=== PATIENT | female | born 1965 | race Two or more races ===

== ENCOUNTER 2024-09-07 09:37 | Emergency (ER) | payer MEDICAID, SELFPAY ==
[2024-09-07 09:43] VITALS: BP 118/76; PULSE 75; RESP 18; TEMP 36.7; O2SAT 98; BMI 31.1
--- NOTE | 2024-09-07 09:54 | PD.EDRME ---
Rapid Medical Screening Exam RME Arrival date/time: 09/07/24 09:37 59 yo f present to ED for c/o of RLQ/Flank pain for 1 month I have greeted and performed a focused initial assessment of this patient. A comprehensive ED assessment and evaluation of the patient, analysis of all test results, and completion of the medical decision making process will be conducted by additional ED providers. Chief Complaint: Abdominal Pain Vital signs: Vital Signs Temperature 98.0 F 09/07/24 09:43 Pulse Rate 75 09/07/24 09:43 Respiratory Rate 18 09/07/24 09:43 Blood Pressure 118/76 09/07/24 09:43 Pulse Oximetry (%) 98 09/07/24 09:43 Oxygen Delivery Method Room Air 09/07/24 09:43
--- NOTE | 2024-09-07 09:55 | XR_ITS ---
Examination: CT abdomen with intravenous contrast. CT pelvis with intravenous contrast. 2-D sagittal and coronal reconstructions. Date and time of exam: 09/07/2024 12:15 PM Indication: Abdominal pain, history of hernia surgery CTDI: vol (mGy) 11.2 DLP: (mGycm) 541 Technique: Axial sections of the abdomen and pelvis have been obtained post contrast intravenous injection 3 mm slice thickness. 2-D coronal and sagittal reconstructions were obtained. Low dose protocols were performed. One or more of the following dose reduction techniques were used; automated exposure control, adjustment of the mA and/or KV according to patient size, use of iterative reconstruction technique. Intravenous injection Findings: Incidental images of the lung bases demonstrates that they are clear. There are no basilar infiltrates or pleural effusions. The heart size is normal. Imaging through the upper abdomen demonstrates a normal-appearing liver, spleen, and pancreas. Small hiatal hernia. Gallbladder is surgically absent. The adrenal glands are unremarkable. The kidney is normal with respect to size shape and position. Left pelvic kidney otherwise unremarkable. There is no evidence of a renal mass, nephrolithiasis or hydronephrosis. The abdominal aorta is unremarkable. There is no periaortic lymphadenopathy. The small bowel loops have a normal appearance. Scattered sigmoid diverticulum without evidence of inflammation. Visualized colon otherwise unremarkable. No focal mass or free fluid.. Multiple surgical clips seen anterior midline abdomen. No evidence of abscesses or soft tissue inflammation. There is no evidence of an abdominal wall hernia. The osseous structures appear intact. Impression: Small hiatal hernia. Sigmoid diverticulosis without evidence of diverticulitis. No evidence of abdominal masses or fluid collections..
[2024-09-07 10:23] LABS: Basophils % (Auto) 0 % (0-2.5); Eosinophils # (Auto) 0.5 Thou/mm3 (0.0-0.5); Eosinophils % (Auto) 7 % (0-10); Hematocrit 40.8 % (36.0-46.0); Hemoglobin 14.5 g/dL (12.0-16.0); Immature Granulocytes % (Auto) 0 % (0-0); Immature Granulocytes Auto 0.01 Thou/mm3 (0.00-0.00); Lymphocytes # (Auto) 2.1 Thou/mm3 (1.0-4.8); Lymphocytes % (Auto) 30 % (10-50); Mean Corpuscular HGB Conc 35.5 g/dl (31.0-37.0); Mean Corpuscular Volume 90 fL (80-100); Monocytes # (Auto) 0.5 Thou/mm3 (0.0-0.8); Monocytes % (Auto) 7 % (0-12); Neutrophils # (Auto) 3.9 Thou/mm3 (1.8-7.7); Neutrophils % (Auto) 56 % (37-80); Nucleated Red Blood Cell % 0 /100 WBC (0); Platelet Count 178 Thou/mm3 (140-440); RDW Standard Deviation 41.7 fL (36.4-46.3); Red Blood Count 4.53 Miln/mm3 (4.00-5.20); White Blood Count 6.9 Thou/mm3 (3.6-11.0)
[2024-09-07 10:31] LABS: Collection Type, Urine Voided
[2024-09-07 10:41] LABS: Alanine Aminotransferase 24 U/L (10-49); Albumin, Serum 4.1 gm/dL (3.4-4.8); Albumin/Globulin Ratio 1.4 (1.2-2.2); Alkaline Phosphatase 90 U/L (46-116); Anion Gap 6 (7-16); Aspartate Amino Transferase 21 U/L (0-34); BUN/Creatinine Ratio 16 Ratio (12-20); Bilirubin,Total 0.7 mg/dL (0.3-1.2); Blood Urea Nitrogen 11 mg/dL (9-23); Calcium 9.3 mg/dL (8.3-10.6); Calcium (Corrected) 9.3 mg/dL (8.5-10.1); Carbon Dioxide 30.2 mMol/L (20.0-31.0); Chloride 107 mMol/L (98-107); Creatinine (Component) 0.7 mg/dL (0.6-1.3); Estimated Creatinine Clearance 78.1 mL/min (>60); Glucose 101 mg/dL (74-106); Lipase 39 U/L (12-53); Osmolality,Calculated 284 (275-295); Potassium 4.6 mMol/L (3.4-5.1); Sodium 143 mMol/L (136-145); Total Protein 7.1 gm/dL (5.7-8.2); Troponin I < 0.002 ng/mL (0.0-0.045); eGFR > 60 See Note
[2024-09-07 10:58] VITALS: BP 140/82; PULSE 65; RESP 17; TEMP 36.6; O2SAT 98
[2024-09-07 11:23] LABS: Bilirubin,Urine Negative (Negative); Blood,Urine Negative (Negative); Clarity,Urine Clear (Clear/Hazy); Color,Urine Yellow (Lt Yel-Yel); Glucose, Urine Negative (Negative); Hyaline Casts,Urine < 1 /hpf (0-1); Ketones,Urine Trace (Negative); Leukocyte Esterase,Urine Negative (Negative); Nitrite,Urine Negative (Negative); Protein,Urine Trace (Neg - Trace); RBC,Urine 2 /hpf (0-3); Specific Gravity,Urine 1.033 (1.001-1.035); Squamous Epithelial Cell,Urine 1 /hpf (0-5); Urobilinogen,Urine Negative mg/dL (0.0-1.0); WBC,Urine 2 /hpf (0-5)
[2024-09-07 12:28] VITALS: BP 141/78; PULSE 77; RESP 18; TEMP 36.8; O2SAT 98
--- NOTE | 2024-09-07 12:54 | PD.EDADULT ---
ED General RME/HPI General Chief complaint: Abdominal Pain Stated complaint: UPPER ABDOMEN PAIN Arrival date/time: 09/07/24 09:37 RME / HPI RME / HPI narrative: Patient is a 59 years old female with PMH of asthma presented to the ED with her daughter due to worsening RUQ pain over the last week. She reports the pain started approximately 1 month ago and was mild and not bothering her much. Over the last week the pain got significantly worse. She reports it hurts more after oral intake. She has regular bowel movements with no changes. Her urination is unchanged. She denies any fever, chills, nausea, vomiting, hematoshezia or melena. She had cholecystectomy and hernia repair done many years ago in . She does not take any medications or supplements other then her albuterol inhaler. Related Data Previous Rx's ?Medication ?Instructions ?Recorded albuterol sulfate 90 mcg/actuation 2 puff inhalation Q6HR PRN 01/11/17 aerosol inhaler (ProAir HFA) SHORTNESS OF BREATH #1 inh pantoprazole 20 mg tablet,delayed 20 mg PO QDAY acid reflux #20 tabs 09/07/24 release (Protonix) Allergies Allergy/AdvReac Type Severity Reaction Status Date / Time No Known Allergies Allergy Verified 09/07/24 09:40 Review of Systems Review of Systems Systems Reviewed: All systems reviewed, normal except as documented ED Exam Narrative Physical exam: Gen: Well-developed and well-nourished. HEENT: NCAT, PERRLA, EOMI, MMM, anicteric conjunctivae. CVS: normal S1 and S2. RRR. No M/R/G. Resp: CTA B/L. No rhonchi, rales, crackles or wheezing. Abd: soft, non-tender, non-distended. BS+ in all 4 quadrants. Well healed scar in epigastrium. MSK: Good ROM in BUE & BLE. No edema or rash. Neuro: CN II-XII grossly intact. Strength 5/5 in BUE & BLE. Alert and oriented x3. Psych: appropriate mood and affect. Course Course Course Narrative: Stable in the ED. Quality Measures none Orders Category Date Time Status CT Screening NOW Care 09/07/24 09:55 Completed EKG (ED ONLY) *Do not use* NOW Care 09/07/24 09:55 Completed IV [Insert IV] STAT Care 09/07/24 09:[address] abdomen pelvis w con Stat Exams 09/07/24 09:55 Completed EKG (ED Only) Stat Exams 09/07/24 09:55 Ordered CBC Stat Lab 09/07/24 10:14 Completed CMP [Comprehensive Metabolic Panel] Stat Lab 09/07/24 10:14 Completed Lipase Stat Lab 09/07/24 10:14 Completed Troponin I Stat Lab 09/07/24 10:14 Completed UA [Urinalysis] Stat Lab 09/07/24 10:23 Completed Vital Signs Vital signs: Vital Signs Temperature 98.0 F 09/07/24 09:43 Pulse Rate 75 09/07/24 09:43 Respiratory Rate 18 09/07/24 09:43 Blood Pressure 118/76 09/07/24 09:43 Pulse Oximetry (%) 98 09/07/24 09:43 Oxygen Delivery Method Room Air 09/07/24 09:43 [facility] Patient data External records reviewed:: [facility] previous records Clinical information provided by:: patient and family Social determinants that could affect healthcare access:: none Patient has the following chronic illnesses:: Asthma, well controlled. s/p hernia repair and cholecystectomy. How is presenting disease/condition affected by chronic disease/condition?: uneffected by Evaluation data The following diagnostics were reviewed and interpreted by me:: lab results and radiology exam(s) Lab and/or radiology exams considered but not ordered:: MRCP, abdominal US Interpretation Summary: Findings consistent with small hiatal hernia. Medications Medications considered but not ordered:: omeprazole, famotidine Medication administrations:: none Consultations Consultation(s) initiated? (list below): No Diagnosis Differential Diagnosis ED Complaint MDM: Choledocholithiasis, acute pancreatitis, acute hepatitis, PUD/gastric ulcer Most likely diagnosis given after review of the tests above:: Hiatal hernia. Admission Indicated Admission indicated?: not indicated Explain why admission is indicated or not indicated:: Patient's labs findings are mostly WNL, no acute liver, billiary or pancreatic disease identified. CT showed only small hiatal hernia which is not an indication for admission. Admission Request Was there a request for admission?: No Disposition Plan Disposition Plan: Discharge Discharge Attestation Discharge Attestation: The patient and all family members were given an opportunity to ask questions and understood the discharge instructions. Discharge instructions specifically effects, indications for sooner follow up or return to the emergency department, and the expected course of current diagnosis. Patient condition: Stable Medical Decision Making Differential Diagnosis Differential Diagnosis: Choledocholithiasis, acute pancreatitis, acute hepatitis, PUD/gastric ulcer Lab Data 09/07/24 10:14 09/07/24 10:14 Labs: Lab Results 09/07/24 09/07/24 Range/Units 10:14 10:23 WBC 6.9 (3.6-11.0) Thou/mm3 RBC 4.53 (4.00-5.20) Miln/mm3 Hgb 14.5 (12.0-16.0) g/dL Hct 40.8 (36.0-46.0) % MCV 90 (80-100) fL MCH 32.0 (25.0-35.0) pg MCHC 35.5 (31.0-37.0) g/dl RDW Std Deviation 41.7 (36.4-46.3) fL Plt Count 178 (140-440) Thou/mm3 Neut % (Auto) 56 (37-80) % Lymph % (Auto) 30 (10-50) % [place] % (Auto) 7 (0-12) % Eos % (Auto) 7 (0-10) % Baso % (Auto) 0 (0-2.5) % Neut # (Auto) 3.9 (1.8-7.7) Thou/mm3 Lymph # (Auto) 2.1 (1.0-4.8) Thou/mm3 [place] # (Auto) 0.5 (0.0-0.8) Thou/mm3 Eos # (Auto) 0.5 (0.0-0.5) Thou/mm3 Baso # (Auto) 0.0 (0.0-0.2) Thou/mm3 Immature Gran # (Auto) 0.01 H (0.00-0.00) Thou/mm3 Absolute Nucleated RBC 0.00 (0.00-0.00) Thou/mm3 Immature Gran % 0 (0-0) % Nucleated RBC % 0 (0) /100 WBC Sodium 143 (136-145) mMol/L Potassium 4.6 (3.4-5.1) mMol/L Chloride 107 (98-107) mMol/L Carbon Dioxide 30.2 (20.0-31.0) mMol/L Anion Gap 6 L (7-16) BUN 11 (9-23) mg/dL Creatinine 0.7 (0.6-1.3) mg/dL Estim Creat Clear Calc 78.1 (>60) mL/min eGFR > 60 (60 - ) See Note BUN/Creatinine Ratio 16 (12-20) Ratio Glucose 101 (74-106) mg/dL Calculated Osmolality 284 (275-295) Calcium 9.3 (8.3-10.6) mg/dL Corrected Calcium 9.3 (8.5-10.1) mg/dL Total Bilirubin 0.7 (0.3-1.2) mg/dL AST 21 (0-34) U/L ALT 24 (10-49) U/L Alkaline Phosphatase 90 (46-116) U/L Troponin I < 0.002 (0.0-0.045) ng/mL Total Protein 7.1 (5.7-8.2) gm/dL Albumin 4.1 (3.4-4.8) gm/dL Globulin 3.0 (2.3-3.5) gm/dL Albumin/Globulin Ratio 1.4 (1.2-2.2) Lipase 39 (12-53) U/L Ur Collection Type Voided Urine Color Yellow (Lt Yel-Yel) Urine Clarity Clear (Clear/Hazy) Urine pH 6.0 (5.0-7.0) Ur Specific [place] 1.033 (1.001-1.035) Urine Protein Trace (Neg - Trace) Urine Glucose (UA) Negative (Negative) Urine Ketones Trace (Negative) Urine Blood Negative (Negative) Urine Nitrite Negative (Negative) Urine Bilirubin Negative (Negative) Urine Urobilinogen (Auto) Negative (0.0-1.0) mg/dL Ur Leukocyte Esterase Negative (Negative) Urine RBC 2 (0-3) /hpf Urine WBC 2 (0-5) /hpf Ur Squamous Epith Cells 1 (0-5) /hpf Urine Bacteria None (None) Hyaline Casts < 1 (0-1) /hpf Discharge Plan Plan Patient Disposition: HOME (Self Care) Prescriptions/Referrals Prescriptions/Med Rec: New pantoprazole [Protonix] 20 mg tablet,delayed release (DR/EC) 20 mg PO QDAY Qty: 20 0RF No Action albuterol sulfate [ProAir HFA] 8.5 GM HFA aerosol inhaler 2 puff Inhalation Q6HR PRN (Reason: SHORTNESS OF BREATH) Qty: 1 0RF Referrals: Magi Mathews PA-C [Primary Care Provider] - In 1 week Problem List Clinical Impression: Hiatal hernia with gastroesophageal reflux Patient/Caregiver Discharge Instructions Diet Instructions: Start taking pantoprazole 1 tab daily for 20 days. Use OTC tums or Pepcid during first 2 days of treatment. Follow up with PCP in 2 weeks. Return to the Ed if symptoms recur or worsen. Education Materials: What Is a Hiatal Hernia?, GERD Lifestyle Changes, ED GERD (Adult) Print Language: Greenlandic Stand Alone Forms: Millie Award Info., Patient Portal Info Letter
[2024-09-07 14:05] VITALS: BP 125/57; PULSE 79; RESP 18; TEMP 36.7; O2SAT 99
== END 2024-09-07 14:40 | disposition home or self-care (01) ==
PROVIDERS: Physician Assistant; Emergency Provider Emergency Medicine; PCP Physician Assistant
DX: K21.9 Gastro-esophageal reflux disease without esophagitis (principal); K44.9 Diaphragmatic hernia without obstruction or gangrene
CPT/HCPCS: 36415; 74177; 80053; 81001; 83690; 84484; 85025; 93005; 99285; A4649; Q9967

== ENCOUNTER → 2024-10-09 | Outpatient (CLI) | payer MEDICAID, SELFPAY ==
--- NOTE | 2024-10-09 13:35 | XR_ITS ---
Examination: Screening digital mammography, bilateral Computer aided detection 3-D breast Tomosynthesis, bilateral Date and time of exam: October 09, 2024 1249 hours Compared to mammograms dating to January 19, 2006 Indication: Screening Technique: Nonmagnified MLO, CC views of the breasts to been obtained, reconstructed from 3-D Tomosynthesis images. R2 computer aided detection program utilized for evaluation of suspicious masses and/or abnormal calcifications. 3-D Tomosynthesis images obtained. Findings: Scattered areas of fibroglandular density. Benign calcifications. No interval suspicious masses Impression: BI-RADS category II: Benign Findings. Recommend 1 year follow-up mammogram.
== END | disposition home or self-care (01) ==
DX: Z12.31 Encounter for screening mammogram for malignant neoplasm of breast (principal); R92.323 Mammographic fibroglandular density, bilateral breasts; R92.1 Mammographic calcification found on diagnostic imaging of breast
CPT/HCPCS: 77063; 77067

== ENCOUNTER → 2025-04-03 | Outpatient (CLI) | payer MEDICAID, SELFPAY ==
--- NOTE | 2025-04-03 16:12 | XR_ITS ---
Examination: Hand, left 3 views Technique: Hand AP, oblique, lateral 3 views Date and time of exam: April 03, 2025, 1629 hrs. Indications: Left hand deformity and pain 8 years Findings: Significant osteoarthritis interphalangeal joints especially distal interphalangeal joints second through fifth digits and interphalangeal joint first digit Osteoarthritis also involving the metacarpophalangeal joints and first carpometacarpal joint No erosive arthritis Impression: Osteoarthritis as above, most severe involving the distal interphalangeal joints especially the third distal interphalangeal joint
== END | disposition home or self-care (01) ==
DX: M19.042 Primary osteoarthritis, left hand (principal)
CPT/HCPCS: 73130

== ENCOUNTER 2025-05-28 15:51 | Emergency (ER) | payer MEDICAID, SELFPAY ==
[2025-05-28 15:59] VITALS: BP 147/82; PULSE 99; RESP 24; TEMP 36.7; O2SAT 100
--- NOTE | 2025-05-28 16:18 | PD.EDSOB ---
ED SOB =RME/HPI General Chief Complaint: Shortness of Breath/Dyspnea Stated Complaint: DIFFICULTY BREATHING Time Seen by Provider: 05/28/25 16:01 Arrival date/time: 05/28/25 15:51 RME / HPI RME / HPI Narrative: 60 year old female with history of asthma, presents to the ED with difficulty breathing that started approximately 2 hours ago. She reports that while rinsing her truck with water, she suddenly felt her throat was ?swollen? accompanied by chest tightness. Shortly after, she began feeling short of breath and noted bilateral tingling in her hands and arms, which has since resolved. Despite using several puffs of her inhaler, she did not experience any relief, prompting her visit to the emergency room. Denies associated chest pain, cough, or symptoms at this time. The patient also reports having undergone an upper endoscopy one week ago, during which she was diagnosed with a hiatal hernia. She states that the procedure was uncomplicated, and she had no issues during or after the procedure. Related Data Previous Rx's ?Medication ?Instructions ?Recorded albuterol sulfate 90 mcg/actuation 2 puff inhalation Q6HR PRN 01/11/17 aerosol inhaler (ProAir HFA) SHORTNESS OF BREATH #1 inh pantoprazole 20 mg tablet,delayed 20 mg PO QDAY acid reflux #20 tabs 09/07/24 release (Protonix) Allergies Allergy/AdvReac Type Severity Reaction Status Date / Time No Known Allergies Allergy Verified 05/28/25 15:58 Review of Systems Review of Systems Systems Reviewed: All systems reviewed, normal except as documented Past Medical History Past Medical History RESPIRATORY: Positive Asthma (asthma) Family History FAMILY HISTORY: Positive Family Cancer (father lung) and Family Surgery Social History SMOKING STATUS: Never smoker ED Exam Narrative Physical exam: Constitutional: Awake, alert, nontoxic, appears anxious, query if there is stridor or not, pt is able to breathe at times without stridor and other time with stridor HEENT: Normocephalic, atraumatic, extraocular movements intact. Normal oropharyngeal exam, no pharyngeal edema or swelling, no lip or tongue swelling. Neck: Supple CV: Regular rate and rhythm, no murmurs/rubs/gallops Lungs: Clear to auscultation BL, no respiratory distress. Abd: Soft, mildly tend to epigastrium, ND, no HSM noted to palpation Extremities: No deformities, no edema noted Neuro: AAOx3, CN 2-12 GIBL, no acute neuro deficit noted. Skin: Warm, dry, intact, no rash Course Course Course Narrative: 1650h: RN called me into the room. States shortly after pushing the Benadryl, Dexamethasone, and Pepcid, the patient had reported feeling worse. She is saturating 99% on room air, tachycardic 105 on telemetry. 1750h: Radiologist Dr. Rader recomends repeating soft tissue lateral neck to better assess the epiglottis. 1800h: Care signed out to Dr. Sellers pending repeat xray and final disposition. Quality Measures none Orders Category Date Time Status XR soft tissue neck Stat Exams 05/28/25 16:17 Completed XR soft tissue neck Stat Exams 05/28/25 17:55 Ordered Albuterol/Ipratr Rt Sue [Duoneb Rt Sue] Med 05/28/25 16:19 Discontinued 3 ml INH X1 ONE Dexamethasone Inj [Decadron Inj] Med 05/28/25 16:19 Discontinued 10 mg IVP X1 ONE DiphenhydrAMINE INJ [Benadryl Inj] Med 05/28/25 16:19 Discontinued 50 mg IVP X1 ONE EPINEPHrine Rt Sue [Racemic Epi Rt Sue] Med 05/28/25 16:53 Discontinued 0.5 ml INH X1 ONE Famotidine Inj [Pepcid Inj] Med 05/28/25 16:21 Discontinued 20 mg IVP X1 ONE Sodium Chloride Rt Sue 0.9% [NS Rt Sue 0.9%] Med 05/28/25 16:53 Active 3 ml INH PRN PRN hydrOXYzine INJ Med 05/28/25 16:53 Discontinued 50 mg IM X1 ONE Vital Signs Vital signs: Vital Signs Temperature 98.0 F 05/28/25 15:59 Pulse Rate 99 05/28/25 15:59 Respiratory Rate 24 H 05/28/25 15:59 Blood Pressure 147/82 H 05/28/25 15:59 Pulse Oximetry (%) 100 05/28/25 15:59 Oxygen Delivery Method Room Air 05/28/25 15:59 Pulse ox is 100% on room air which is adequate. Shortness of Breath / Dyspnea MDM Narrative MDM Narrative:: Fiordaliza Nicholas am scribing for and in the presence of Dr. Rodriguez. Patient data External records reviewed:: [facility] [place] Clinical information provided by:: patient and EMS Social determinants that could affect healthcare access:: none Patient has the following chronic illnesses:: Asthma How is presenting disease/condition affected by chronic disease/condition?: exacerbated by Evaluation data The following diagnostics were reviewed and interpreted by me:: lab results and radiology exam(s) Lab and/or radiology exams considered but not ordered:: None Interpretation Summary: Ordering Physician: Crista Rodriguez MD Date of Service: 05/28/25 Procedure(s): XR soft tissue neck Accession Number(s): [id number] cc: Cliff Hawkins MD; Crista Rodriguez MD~ EXAMINATION: Soft tissue neck 2 view TECHNIQUE: AP lateral soft tissue neck 2 views Date and time: May 28, 2025, 1657 hours INDICATIONS: Difficulty breathing today. FINDINGS: Epiglottis is poorly visualized Hyoid bone and thyroid cartilage intact. No prevertebral soft tissue prominence Prominent osteophytes C2-C3 No cervical fracture Diffuse moderate cervical degenerative disc disease IMPRESSION: Recommend repeat soft tissue lateral neck to better assess the epiglottis Dictated By: Cliff Hawkins MD Signed By: <Electronically signed by Cliff Hawkins MD in OV> 05/28/25 1744 Medications / Prescriptions Medications or Prescriptions considered but not ordered:: None Medication administrations:: Medication Administration History Sodium Chloride (Sodium Chloride Rt Sue 0.9% 3 Ml Nebu) 3 ml INH PRN PRN PRN Reason: SOLN Stop: 06/27/25 16:52 Last Admin: 05/28/25 17:04 Dose: 3 ml Documented By: AA Discontinued Medications Albuterol/Ipratropium (Albuterol/Ipratropium (Duoneb) Rt Sue 3 Ml Nebu) 3 ml INH X1 ONE Stop: 05/28/25 16:20 Last Admin: 05/28/25 16:29 Dose: 3 ml Documented By: AA Dexamethasone Sodium Phosphate (Dexamethasone Sod Phos Inj 10 Mg/Ml Vial) 10 mg IVP X1 ONE Stop: 05/28/25 16:20 Last Admin: 05/28/25 16:44 Dose: 10 mg Documented By: MG Diphenhydramine HCl (Diphenhydramine Inj 50 Mg/Ml Vial) 50 mg IVP X1 ONE Stop: 05/28/25 16:20 Last Admin: 05/28/25 16:44 Dose: 50 mg Documented By: MG Epinephrine (Epinephrine Rt Sue 0.5 Ml Nebu) 0.5 ml INH X1 ONE Stop: 05/28/25 16:54 Last Admin: 05/28/25 17:04 Dose: 0.5 ml Documented By: AA Famotidine (Famotidine Inj 10 Mg/Ml Vial 2 Ml) 20 mg IVP X1 ONE Stop: 05/28/25 16:22 Last Admin: 05/28/25 16:45 Dose: 20 mg Documented By: MG Hydroxyzine HCl (Hydroxyzine Inj 25 Mg/Ml Vial) 50 mg IM X1 ONE Stop: 05/28/25 16:54 Last Admin: 05/28/25 17:06 Dose: 50 mg Documented By: MG See above Consultations Consultation(s) initiated? (list below): No Diagnosis Shortness of Breath Differential Diagnosis: acute exacerbation of chronic obstructive airways disease, congestive heart failure, community acquired pneumonia and asthma with exacerbation Most likely diagnosis given after review of the tests above:: Shortness of breath Admission Indicated Admission indicated?: not indicated Explain why admission is indicated or not indicated:: Signed out to Dr. Sellers pending final dispositon. Admission Request Was there a request for admission?: No Disposition Plan Disposition Plan: other (specify) (Signed out to Dr. Sellers ) Discharge Plan Prescriptions/Referrals Prescriptions/Med Rec: No Action albuterol sulfate [ProAir HFA] 8.5 GM HFA aerosol inhaler 2 puff Inhalation Q6HR PRN (Reason: SHORTNESS OF BREATH) Qty: 1 0RF pantoprazole [Protonix] 20 mg tablet,delayed release (DR/EC) 20 mg PO QDAY Qty: 20 0RF Referrals: No Primary/Family,Physician [Primary Care Provider] - In 1 week Problem List Clinical Impression: Shortness of breath Patient/Caregiver Discharge Instructions Print Language: Telugu
[2025-05-28 16:29] VITALS: PULSE 94; RESP 20; O2SAT 100
[2025-05-28] MEDS: ALBUTEROL/IPRATROPIUM (Duoneb) RT SOL 3 ML NEBU INH (16:29)
[2025-05-28] MEDS: DEXAMETHASONE SOD PHOS INJ 10 MG/ML VIAL IVP (16:44)
[2025-05-28] MEDS: FAMOTIDINE INJ 10 MG/ML VIAL 2 ML 20 MG IVP (16:45)
[2025-05-28 16:50] VITALS: BP 156/84; PULSE 101; RESP 18; TEMP 36.9; O2SAT 99
[2025-05-28] MEDS: SODIUM CHLORIDE RT SOL 0.9% 3 ML NEBU INH (17:04)
[2025-05-28] MEDS: EPINEPHrine RT SOL 0.5 ML NEBU INH (17:04)
[2025-05-28 17:05] VITALS: PULSE 103; RESP 18; O2SAT 99
[2025-05-28] MEDS: hydrOXYzine INJ 25 MG/ML VIAL 50 MG IM (17:06)
--- NOTE | 2025-05-28 17:55 | XR_ITS ---
EXAMINATION: Lateral soft tissue neck TECHNIQUE: Lateral soft tissue neck single view Date and time: May 28 2025, 1833 hours INDICATIONS: Difficulty breathing today FINDINGS: The epiglottis is diagnostically visualized on this study and not enlarged No distention hypopharynx Hyoid bone and thyroid cartilage intact Again noted prominent bony spur formation at the anterior margin upper cervical vertebral bodies measuring up to 10 mm No prevertebral soft tissue prominence IMPRESSION: Normal epiglottis
[2025-05-28 18:19] VITALS: BP 129/80; PULSE 94; RESP 18; TEMP 37.2; O2SAT 97
--- NOTE | 2025-05-28 18:28 | EDNOTE_ITS ---
Emergency Room Addendum Addendum Narrative: 18:00- Care assumed from Dr. Rodriguez (emergency physician). Past medical, surgical, social and family history reviewed. Vitals and home medications reviewed. Results and treatment plan discussed. I will assume the care of the patient at this time and will follow the patient, pending repeat soft tissue neck x-ray. The following addendum documentation note is intended to reflect any pending information, findings, or radiology results not included in the patient?s initial chart by the previous shift scribe. RADIOLOGY Soft Tissue Neck X-Ray: FINDINGS: The epiglottis is diagnostically visualized on this study and not enlarged No distention hypopharynx Hyoid bone and thyroid cartilage intact Again noted prominent bony spur formation at the anterior margin upper cervical vertebral bodies measuring up to 10 mm No prevertebral soft tissue prominence IMPRESSION: Normal epiglottis 18:52 - Assumed care of this pleasant 60 y/o female having presented with transient epigastric discomfort with subsequent ST and difficulty breathing. Patient had received Benadryl, GI cocktail, and Decadron and subsequent racemic Epinephrine. Although patient denies flu-like symptoms, erythematous vesicles at the oropharynx are noted, highly suggestive of viral illness. Suspect l aryngospasm. Will place on steroids, Tylenol with Codeine, recommend lozenges and humidified air. Final diagnosis includes acute laryngospasm. 19:01 - I have spoken with the patient and discussed today?s findings, in addition to providing specific details for the plan of care. Questions are answered and there is an agreement with the plan. Re-assessment at the time of disposition demonstrates that the patient is in no acute distress. The patient has remained stable throughout the entire ED visit and is without objective evidence for acute process requiring urgent int ervention or hospitalization. The patient is stable for discharge; counseling is provided and documented as above, discussed symptomatic treatment and specific conditions for return.
[2025-05-28 19:34] VITALS: BP 125/78; PULSE 78; RESP 20; TEMP 36.6; O2SAT 99
== END 2025-05-28 19:36 | disposition home or self-care (01) ==
PROVIDERS: Emergency Provider Emergency Medicine
DX: R06.02 Shortness of breath (principal); J38.5 Laryngeal spasm; J45.909 Unspecified asthma, uncomplicated; K21.9 Gastro-esophageal reflux disease without esophagitis; K44.9 Diaphragmatic hernia without obstruction or gangrene
CPT/HCPCS: 70360; 94640; 96372; 96374; 96375; 99284; A9270; J1100; J1200; J3410; J3490